=== PATIENT | female | born 1990 | race Asian ===

== ENCOUNTER 2017-03-05 15:23 | Emergency (ER) | payer OTHER ==
--- NOTE | 2017-03-05 15:27 | PDOC ---
Rapid Medical Evaluation Time Seen by Provider: 03/05/17 15:24 Medical Evaluation: Allergies Allergy/AdvReac Type Severity Reaction Status Date / Time No Known Allergies Allergy Verified 11/10/14 20:07 I have performed a brief in-person evaluation of this patient. The patient presents with a chief complaint of: dog bite to right hand. Pt is a diabetic Pertinent physical exam findings: small open wound to dorsum of right hand at base of 4th digit I have ordered the following: nothing The patient will proceed to the ED for further evaluation.
[2017-03-05 15:28] VITALS: BP 134/83; PULSE 95; TEMP 98.3; BMI 20.5
[2017-03-05] MEDS ORDERED: DIPHTH,PERTUSS(ACELL),TET 0.5 ML DISP.SYRIN IM ONE (18:11)
--- NOTE | 2017-03-05 18:17 | PDOC ---
History of Present Illness - General Chief Complaint: Bite Stated Complaint: DOG BITE Time Seen by Provider: 03/05/17 15:24 History Source: Patient Exam Limitations: No Limitations - History of Present Illness Initial Comments: 03/05/17 18:12 CHIEF COMPLAINT: Dog bite right hand HISTORY OF PRESENT ILLNESS: Patient is a 27-year-old female history of insulin- dependent diabetes was walking today and noticed a dog running towards her that there was a stone wall them, when the dog got to the wall she was startled and fell forward her arm went on top of the wall and noticed that the dog bit her on her right hand, she did have a glove on and pulled away, then noted an abrasion to the dorsum of the right hand with no identifiable puncture wound. Timing/Duration: 1-3 hours Severity: moderate Past History - Past Medical History Allergies/Adverse Reactions: Allergies Allergy/AdvReac Type Severity Reaction Status Date / Time No Known Allergies Allergy Verified 03/05/17 15:25 Home Medications: Ambulatory Orders Insulin (Levemir) [Levemir Flexpen -] 20 units SQ DAILY 11/10/14 Insulin Aspart [Novolog] 5 units SQ TID 11/10/14 Amox-Tr/K Cl [Augmentin - 875Mg Tablet] 1 tab PO BID #10 tablet 03/05/17 COPD: No Diabetes: Yes - Immunization History Immunization Up to Date: Yes - Suicide/Smoking/Psychosocial Hx Smoking Status: Yes Smoking History: Never smoked Have you smoked in the past 12 months: Yes Number of Cigarettes Smoked Daily: 7 'Breaking Loose' booklet given: 11/10/14 Hx Alcohol Use: No Drug/Substance Use Hx: Yes (marijuana.) Substance Use Type: Marijuana Review of Systems - Review of Systems Constitutional: No: Symptoms Reported HEENTM: No: Symptoms Reported Respiratory: No: Symptoms reported Cardiac (ROS): No: Symptoms Reported ABD/GI: No: Symptoms Reported : No: Symptoms Reported Musculoskeletal: No: Symptoms Reported Integumentary: Yes: Other (superficial abrasion t the dorsum of the right hand. ) Neurological: No: Symptoms reported Hematologic/Lymphatic: No: Symptoms Reported All Other Systems: Reviewed and Negative *Physical Exam - Vital Signs Last Vital Signs Temp Pulse Resp BP Pulse Ox 98.3 F 95 H 18 134/83 99 03/05/17 15:24 03/05/17 15:24 03/05/17 15:24 03/05/17 15:24 03/05/17 15:24 - Physical Exam General Appearance: Yes: Appropriately Dressed. No: Apparent Distress Respiratory/Chest: positive: Lungs Clear, Normal Breath Sounds. negative: Respiratory Distress, Accessory Muscle Use Cardiovascular: positive: Regular Rhythm, Regular Rate Lymphatic: negative: Adenopathy Musculoskeletal: positive: Normal Inspection Extremity: positive: Other (abrasion measuring 2 cm to the dorsum of the right hand. ) Integumentary: negative: Erythema, Swelling, Ecchymosis, Bruising Neurologic: positive: Alert, Normal Mood/Affect Medical Decision Making - Medical Decision Making 03/05/17 18:16 A/P: Patient here for evaluation of dog bite/abrasion to right hand. Patient is aware of where the dog resides there are 3 dogs on the premises. Patient reports that the dog was domesticated she wants to attempt to find the owners and ask if dog is vaccinated if not will return for rabies vaccine she sees the dogs on a regular basis and walks past the house and a daily basis. I will give tetanus, Augmentin, follow-up with department of health. 03/05/17 19:59 *DC/Admit/Observation/Transfer Diagnosis at time of Disposition: Dog bite Qualifiers: Encounter type: initial encounter Qualified Code(s): W54.0XXA - Bitten by dog, initial encounter - Discharge Dispostion Disposition: HOME Condition at time of disposition: Stable Admit: No - Prescriptions Prescriptions: Amox-Tr/K Cl [Augmentin - 875Mg Tablet] 1 tab PO BID #10 tablet - Referrals Referrals: Jourdan Gardner MD [Primary Care Provider] - - Patient Instructions Printed Discharge Instructions: How to Care for a Domestic Animal Bite Additional Instructions: You have 10 days to obtain the information regarding the dog vaccination record is required. Please call the [facility] to follow-up at [phone]. If you are unable to find information regarding the animal please return for rabies vaccination. If any increased redness, swelling, signs of infection return to ER - Post Discharge Activity
== END 2017-03-05 18:34 | disposition home or self-care (01) ==
LOC: JERFT 15:23 → SUPCPDRO 15:23 → JERFT 18:34
PROC: 3E0234Z Introduction of Serum, Toxoid and Vaccine into Muscle, Percutaneous Approach (ICD-10-PCS; principal; 2017-03-05)
DX: S61.451A Open bite of right hand, initial encounter (principal); W54.0XXA Bitten by dog, initial encounter; Y93.89 Activity, other specified; Y92.89 Other specified places as the place of occurrence of the external cause
CPT/HCPCS: 90471; 90715; 99281-25

== ENCOUNTER 2017-07-16 16:55 | Emergency (ER) | payer OTHER ==
[2017-07-16] MEDS ORDERED: AMOX TR/POT CLAV 875MG/125MG TABLETS (FP) PO ONE (17:11)
--- NOTE | 2017-07-16 17:15 | PDOC ---
History of Present Illness - General History Source: Patient Exam Limitations: No Limitations - History of Present Illness Initial Comments: 07/16/17 17:44 The patient is a 27 year old female with a significant PMH of diabetes who presents to the emergency department with left hand wounds prior to arrival. The patient reports that she was outside her home earlier today walking her dog when she was attacked by her cat. The patient reports that her cat usually runs out of the house. She states that she was attempting to pick it up and take it back inside when it started to scratch and hiss at her. The patient reports associated numbness in her left arm and describes the pain as achy. She states that following the incident she scrubbed her wounds with soap and warm water. She states that she put bandages over them and took benadryl. 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 She denies any other symptoms. She denies fever, chills, nausea, vomit , diarrhea,constipation or urinary symptoms. She denies chest pain, shortness of breath, headache and dizziness. The patient denies any other complaints. <Husam Lucas - Last Filed: 07/16/17 17:44> - History of Present Illness Initial Comments: 07/16/17 18:13 Physical exam: Alert oriented well-developed well-nourished no acute distress cooperative Afebrile, vital signs normal Multiple abrasions and punctures of the right forearm, both volar and dorsal surfaces, without sign of obvious infection, although it is early. No erythema, warmth, or streaking. Pulses full. No demonstrable sensory or motor deficit to the wrist or hand or fingers. However, the patient does complain of tingling of the dorsal surface of the wrist and the fourth and fifth digits. This is improved with elevation No other injuries are noted. HEENT clear Neck supple without nodes Chest clear CV regular without murmur rub or gallop Abdomen benign Neurological intact Impression: Multiple abrasions and punctures from a cat scratch Plan: Augmentin was begun and will be continued. The patient is up-to-date on tetanus. The wounds were again cleaned and dressed with bacitracin, wrapped with 4 x 4 and Lisa. The arm was placed in a sling. The patient is instructed to keep the arm completely at rest and immobile to lessen the chance of infection. If sign of infection develop she should return to the ER or see primary physician immediately. Referred to hand specialist if worse. <True Miranda - Last Filed: 07/16/17 18:17> - General Chief Complaint: Wound Stated Complaint: MULTIPLE CAT SCRATCHES TO RIGHT ARM Time Seen by Provider: 07/16/17 17:09 Past History <Husam Lucas - Last Filed: 07/16/17 17:44> - Past Medical History COPD: No Diabetes: Yes - Immunization History Immunization Up to Date: Yes - Suicide/Smoking/Psychosocial Hx Smoking Status: Yes Smoking History: Never smoked Have you smoked in the past 12 months: Yes Number of Cigarettes Smoked Daily: 7 'Breaking Loose' booklet given: 11/10/14 Hx Alcohol Use: No Drug/Substance Use Hx: Yes (marijuana.) Substance Use Type: Marijuana <True Miranda - Last Filed: 07/16/17 18:17> - Past Medical History Allergies/Adverse Reactions: Allergies Allergy/AdvReac Type Severity Reaction Status Date / Time No Known Allergies Allergy Verified 07/16/17 16:58 Home Medications: Ambulatory Orders Insulin (Levemir) [Levemir Flexpen -] 13 units SQ BID 11/10/14 Insulin Aspart [Novolog] See Protocol SQ TID 11/10/14 Amox-Tr/K Cl [Augmentin 875-125mg Tablet -] 1 tab PO BID #14 tablet 07/16/17 Review of Systems - Review of Systems Able to Perform ROS?: Yes Comments:: 07/16/17 17:45 CONSTITUTIONAL: Absent: fever, chills, diaphoresis, generalized weakness, malaise, loss of appetite HEENT: Absent: rhinorrhea, nasal congestion, throat pain, throat swelling, difficulty swallowing, mouth swelling, ear pain, eye pain, visual Changes CARDIOVASCULAR: Absent: chest pain, syncope, palpitations, irregular heart rate, lightheadedness , peripheral edema RESPIRATORY: Absent: cough, shortness of breath, dyspnea with exertion, orthopnea, wheezing, stridor, hemoptysis GASTROINTESTINAL: Absent: abdominal pain, abdominal distension, nausea, vomiting, diarrhea, constipation, melena, hematochezia GENITOURINARY: Absent: dysuria, frequency, urgency, hesitancy, hematuria, flank pain, genital pain MUSCULOSKELETAL: Absent: myalgia, arthralgia, joint swelling SKIN: (+) left hand scratches/wounds with associated numbness Absent: rash, itching, pallor HEMATOLOGIC/IMMUNOLOGIC: Absent: easy bleeding, easy bruising, lymphadenopathy, frequent infections ENDOCRINE: Absent: unexplained weight gain, unexplained weight loss, heat intolerance, cold intolerance NEUROLOGIC: Absent: headache, focal weakness or paresthesias, dizziness, unsteady gait, seizure, mental status changes, bladder or bowel incontinence PSYCHIATRIC: Absent: anxiety, depression, suicidal or homicidal ideation, hallucinations. <Husam Lucas - Last Filed: 07/16/17 17:44> *Physical Exam - Vital Signs Last Vital Signs Temp Pulse Resp BP Pulse Ox 98.6 F 62 16 104/70 98 07/16/17 16:57 07/16/17 16:57 07/16/17 16:57 07/16/17 16:57 07/16/17 16:57 <Husam Lucas - Last Filed: 07/16/17 17:44> ED Treatment Course - ADDITIONAL ORDERS Additional order review: Laboratory Results 07/16/17 17:25 Urine HCG, Qual Negative - Medications Given in the ED: ED Medications Discontinued Medications Generic Name Dose Route Start Last Admin Trade Name Freq PRN Reason Stop Dose Admin Amoxicillin/Clavulanate Potassium 1 tab 07/16/17 17:11 07/16/17 17:19 Augmentin - 875mg Tablet PO 07/16/17 17:12 1 tab ONCE ONE Administration <Husam Lucas - Last Filed: 07/16/17 17:44> Medical Decision Making - Medical Decision Making 07/16/17 18:09 X-ray reviewed: Negative for foreign body Wounds dressed with bacitracin, 4 x 4, and Lisa. A sling is applied. The patient is comfortable. Numbness and tingling have subsided. She is instructed to follow-up with a hand specialist. She is fully ambulatory and in no significant pain or other distress upon discharge. <True Miranda - Last Filed: 07/16/17 18:17> *DC/Admit/Observation/Transfer - Attestations Scribe Attestion: 07/16/17 17:45 Documentation prepared by Husam Lucas, acting as program medical director for True Beck MD. <Husam Lucas - Last Filed: 07/16/17 17:44> - Discharge Dispostion Decision to Admit order: No <True Miranda - Last Filed: 07/16/17 18:17> Diagnosis at time of Disposition: Cat scratch - Discharge Dispostion Disposition: HOME Condition at time of disposition: Stable - Prescriptions Prescriptions: Amox-Tr/K Cl [Augmentin 875-125mg Tablet -] 1 tab PO BID #14 tablet - Referrals Referrals: Gurjit Cuevas MD [Staff Physician] - 2 Days - Patient Instructions Printed Discharge Instructions: How to Care for a Domestic Animal Bite Additional Instructions: Keep the wounds clean and dry. Wash gently with soap and water at least twice daily and apply antibiotic ointment. Keep covered. Rest the arm, keeping it immobile as possible. This will reduce the risk of infection. Use the sling that is provided. Keep diabetes is well-controlled is possible with your insulin Have the wound looked at by your primary physician in 48 hours. Otherwise return to the emergency room for a wound check. See hand specialist as directed if there is persistent numbness tingling pain or weakness in the wrist hand or fingers. - Post Discharge Activity Forms/Work/School Notes: Back to Work
[2017-07-16] MEDS ORDERED: AMOX TR/POT CLAV 875MG/125MG TABLETS (FP) ONE (17:18)
[2017-07-16 17:20] VITALS: BP 104/70; PULSE 62; TEMP 98.6; BMI 20.8
== END 2017-07-16 18:15 | disposition home or self-care (01) ==
LOC: FER 16:55
DX: S60.512A Abrasion of left hand, initial encounter (principal); W55.03XA Scratched by cat, initial encounter; Y93.89 Activity, other specified; Y92.410 Unspecified street and highway as the place of occurrence of the external cause; E11.9 Type 2 diabetes mellitus without complications; Z87.891 Personal history of nicotine dependence
CPT/HCPCS: 73090-TC-RT-FY; 84703; 99283-25